=== PATIENT | female | born 1940 | race Caucasian/White ===

== ENCOUNTER 2023-09-20 12:51 | Outpatient (CLI) | payer MEDICARE | END 2023-09-20 12:52 | disposition home or self-care (01) | LOC: CSHRAD 12:51 | PROVIDERS: ATTEND Internal Medicine Hematology & Oncology | DX: C50.812 Malignant neoplasm of overlapping sites of left female breast (principal) | CPT/HCPCS: 71046 ==

== ENCOUNTER 2025-02-12 13:11 | Outpatient (CLI) | payer MEDICARE | END 2025-02-12 13:12 | disposition home or self-care (01) | LOC: CSHMAMMO 13:11 | PROVIDERS: ATTEND Internal Medicine Hematology & Oncology | DX: Z08 Encounter for follow-up examination after completed treatment for malignant neoplasm (principal); Z85.3 Personal history of malignant neoplasm of breast | CPT/HCPCS: 77065; G0279 ==